=== PATIENT | female | born 2000 | race Caucasian/White ===

== ENCOUNTER → 2018-10-04 | Outpatient (REF) | payer OTHER ==
[2018-10-04 15:15] LABS: CHLAMYDIA DNA AMPLIFICATION NEGATIVE (NEGATIVE); GC DNA AMPLIFICATION NEGATIVE (NEGATIVE)
== END ==
LOC: M LAB REF 13:07
PROVIDERS: ATTEND Physician Assistant
DX: Z30.011 Encounter for initial prescription of contraceptive pills (principal)

== ENCOUNTER → 2019-03-30 | Outpatient (REF) | payer OTHER | LOC: M LAB REF 13:40 | PROVIDERS: ATTEND Physician Assistant | DX: R50.9 Fever, unspecified (principal) ==

== ENCOUNTER → 2019-09-26 | Outpatient (REF) | payer OTHER | LOC: M LAB REF 11:38 | PROVIDERS: ATTEND Physician Assistant Medical | DX: Z12.4 Encounter for screening for malignant neoplasm of cervix (principal) | CPT/HCPCS: 87491; 87591; 87624; G0123 ==